=== PATIENT | female | born 1975 | race Hispanic/Latino ===

== ENCOUNTER 2022-05-05 18:40 | Emergency (ER) | payer BC, SELFPAY ==
--- NOTE | ~2022-05-05 | XR_ITS ---
XR shoulder RT min 2V 05/05/2022 19:39 Indication: Right shoulder pain Procedure: 2 views right shoulder Comparison: No prior studies for comparison. Findings: There is mild acromioclavicular osteoarthritis. There is anatomic alignment. No acute fract ure or traumatic malalignment. Lung parenchyma is unremarkable. No soft tissue abnormality. Impression: 1: No acute bone or joint abnormality. Reviewed, dictated and finalized at location A. TABLE CUTTER Impression: 1: No acute bone or joint abnormality.
--- NOTE | ~2022-05-05 | XR_ITS ---
XR shoulder LT min 2V 05/05/2022 19:39 Indication: Left shoulder pain after lifting injury Procedure: 2 views left shoulder Comparison: No prior studies for comparison. Findings: There is an old healed distal left clavicular fracture. There is mild degenerative change o f the acromioclavicular joint. There is anatomic alignment. No acute fracture or subluxation. Surroun ding soft tissues and osseous structures are unremarkable. Impression: 1: No acute fracture. Reviewed, dictated and finalized at location A. EW ENGINEER Impression: 1: No acute fracture.
[2022-05-05 18:52] VITALS: BP 148/69; PULSE 89; RESP 16; TEMP 35.9; O2SAT 99
--- NOTE | 2022-05-05 19:17 | ED.GENADULT ---
HPI - General Adult General Chief complaint: Extremity Injury, Upper Stated complaint: shoulder pain Time Seen by Provider: 05/05/22 19:17 Source: patient Mode of arrival: ambulatory Limitations: no limitations History of Present Illness HPI narrative: 47-year-old female presents with bilateral shoulder pain, worse to right shoulder. Has been experiencing pain for several weeks. Is taking Tylenol off and on as needed. Reports that she has been at the same job for 14 years. 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 Reports repetitive motion of right upper extremity pushing on the meat into the bag. Denies injury. Is here to see what she can do about the pain. Does feel that it is related to her job. All systems reviewed and negative except as noted above. Related Data Allergies Allergy/AdvReac Type Severity Reaction Status Date / Time No Known Allergies Allergy Verified 05/05/22 18:55 Review of Systems Review of Systems: CONSTITUTIONAL: Denies fever, chills, or sweats. EYES: Denies visual changes, redness, or discharge. ENT: Denies rhinorrhea, congestion, sore throat, or otalgia. CARDIOVASCULAR: Denies chest pain, palpitations, or edema. RESPIRATORY: Denies cough or dyspnea. GASTROINTESTINAL: Denies abdominal pain, nausea, vomiting, or diarrhea. GENITOURINARY: Denies dysuria or hematuria. SKIN: Denies rash or itching. MUSCULOSKELETAL: Denies back pain, myalgia. Reports pain to both shoulders. NEUROLOGIC: Denies headache, numbness, or weakness. PSYCHIATRIC: Denies anxiety or depression. All other systems reviewed are negative, except as documented in HPI. PMFSH Comments At time of signature, agree with nursing past medical, surgical, social and family history. There is no relevant family history pertinent to the presenting complaint. Exam Narrative: GENERAL: This is a well-nourished, well-developed patient, in no apparent distress. HEAD: normocephalic, atraumatic. EYES: PERRL. Sclera clear/white. Vision is grossly intact. EARS: External ears normal NOSE: External nose normal NECK: Neck supple, non-tender without lymphadenopathy, masses or thyromegaly. CARDIOVASCULAR: Regular rate and rhythm without murmurs, gallops, or rubs. RESPIRATORY: Clear to auscultation. Breath sounds equal bilaterally. No wheezes, rales, or rhonchi. SKIN: warm, Dry, intact with no suspicious lesions or rash, good texture and turgor. NEURO: awake, alert, and oriented to person, place and time. There were no obvious focal neurologic abnormalities. EXTREMITIES: No joint effusion, or edema noted. tenderness to both shoulders the AC joint. Full range of motion noted. Strength 5/5 To both upper extremities. Course Course Level of Care: Express Care Visit Vital Signs Vital signs: Vital Signs Temperature 35.9 C L 05/05/22 18:52 Pulse Rate 89 05/05/22 18:52 Respiratory Rate 16 05/05/22 18:52 Blood Pressure 148/69 H 05/05/22 18:52 Pulse Oximetry 99 05/05/22 18:52 Oxygen Delivery Room Air 05/05/22 18:52 Temperature 35.9 C L 05/05/22 18:52 Pulse Rate 89 05/05/22 18:52 Respiratory Rate 16 05/05/22 18:52 Blood Pressure 148/69 H 05/05/22 18:52 Pulse Oximetry 99 05/05/22 18:52 Oxygen Delivery Room Air 05/05/22 18:52 reviewed Medical Decision Making MDM Narrative Medical decision making narrative: Patient is aware of diagnosis, understands and agrees to treatment plan. Anticipatory guidance given. Patient agrees to follow-up as directed and is aware of reasons to seek care at the emergency department. Portions of this record may have been created with voice recognition software mild arthritis noted to both shoulders. Patient could also have a bursitis or tendinitis related to repetitive motions. Recommend she follow-up with her primary care physician for further evaluation. Vital Signs Vital Signs: Vital Signs Temperature 35.9 C L 05/05/22 18:52 Pulse Rate 89 05/05/22
[2022-05-05] MEDS: KETOROLAC (*BKC) 60 MG/2 ML VIAL IM (19:38)
== END 2022-05-05 20:00 | disposition home or self-care (01) ==
PROVIDERS: Emergency Provider Nurse Practitioner Family; PCP Registered Nurse
DX: M19.012 Primary osteoarthritis, left shoulder (principal); M19.011 Primary osteoarthritis, right shoulder
CPT/HCPCS: 73030; 96372; 99214; G0463; J1885